=== PATIENT | female | born 1970 ===

== ENCOUNTER 2020-12-10 12:15 | Inpatient (IN) | payer OTHER ==
[~2020-12-10] VITALS: Ht 160 cm; Wt 68.0 kg
[2020-12-10] MEDS ORDERED: TRAZOD PO (15:08)
[2020-12-10] MEDS ORDERED: BENADRYL25 MG PO (15:09)
[2020-12-10] MEDS ORDERED: FOLIC A PO (15:09)
[2020-12-10] MEDS ORDERED: VITAMIN PO (15:10)
[2020-12-10] MEDS ORDERED: VITAMIN B12 PO (15:10)
[2020-12-10] MEDS ORDERED: IRON PO (15:11)
[2020-12-10] MEDS ORDERED: VITAMIN D PO (15:11)
[2020-12-10] MEDS ORDERED: [UNRECOGNIZED DRUG - OTHER] PO (15:12)
[2020-12-14] MEDS ORDERED: TRAZODONE HCL100 MG (10:16)
[2020-12-14] MEDS ORDERED: METOPROLOL SUCC50 MG (10:16)
[2020-12-14] MEDS ORDERED: IRON236 MG (10:16)
[2020-12-14] MEDS ORDERED: VITAMIN D310 MC4 (10:21)
[2020-12-14] MEDS ORDERED: FOLIC ACID0.8 M1 (10:21)
[2020-12-14] MEDS ORDERED: FISH OIL 1,0001 EAC4 (10:21)
[2020-12-14] MEDS ORDERED: FOLIC ACID0.4 MG (10:22)
[2020-12-16] MEDS ORDERED: CODE1TAB37 PO (07:49)
[2020-12-16] MEDS ORDERED: KETO10TA2 PO (07:49)
== END 2020-12-16 09:59 | disposition home or self-care (01) | DRG 743 ==
LOC: O/R 12-13 05:35 → OB/GYN 12-13 05:35 → SURH 12-13 10:45 → OB/GYN 12-13 10:58 → SURH 12-13 12:15 → O/R 12-14 14:00 → OB/GYN 12-14 14:03
PROVIDERS: Urology; ADMIT Obstetrics & Gynecology; ATTEND Obstetrics & Gynecology
PROC: 0UT70ZZ Resection of Bilateral Fallopian Tubes, Open Approach (ICD-10-PCS; 2020-12-13)
PROC: 0UT90ZZ Resection of Uterus, Open Approach (ICD-10-PCS; principal; 2020-12-13 10:45)
PROC: 0T788DZ Dilation of Bilateral Ureters with Intraluminal Device, Via Natural or Artificial Opening Endoscopic (ICD-10-PCS; 2020-12-13 10:45)
DX: N72 Inflammatory disease of cervix uteri (principal); N84.0 Polyp of corpus uteri; N80.0 Endometriosis of uterus; D25.1 Intramural leiomyoma of uterus; N94.5 Secondary dysmenorrhea; N83.8 Other noninflammatory disorders of ovary, fallopian tube and broad ligament